=== PATIENT | male | born 1945 | race Caucasian/White ===

== ENCOUNTER 2023-01-26 10:02 | Outpatient (CLI) | payer MEDICARE, SELFPAY ==
--- NOTE | ~2023-01-26 | MR_ITS ---
EXAMINATION: MR brain/brain stem wo con DATE: 01/26/2023 11:13 INDICATION: Transient cerebral ischemia. TECHNIQUE: Magnetic resonance imaging (MRI) of the brain and brainstem was performed without intraven ous contrast. Sequences included sagittal and axial T1-weighted SE, axial diffusion-weighted FS SE, a xial T2*-weighted GRE, axial 3D SWAN, axial T2-weighted FLAIR, and axial T2-weighted FSE. Apparent di ffusion coefficient (ADC) maps were created. COMPARISON: None. FINDINGS: There are no areas of restricted diffusion to suggest acute infarction. No intracranial hemorrhage or abnormal intracranial mass lesion. There are scattered areas of nonspecific increased T2-weighted si gnal intensity in the cerebral white matter, predominantly involving the deep and periventricular whi te matter. Foci of susceptibility artifact at the bilateral lentiform nuclei on SWAN imaging which co uld represent blood products related to chronic microhemorrhage or more likely age-related dystrophic calcifications. There are no intraparenchymal signal abnormalities seen on the other pulse sequences . The ventricles are symmetric and normal in size. Right vertebral artery is dominant. There are no a bnormal extra-axial fluid collections. Flow voids are seen in the cerebral arteries on the T2-weighte d sequences consistent with their expected patency. Mild mucosal thickening in the right maxillary an d bilateral ethmoid sinuses. Visualized orbits and soft tissues are unremarkable. IMPRESSION: 1. No acute intracranial process. 2. Mild scattered nonspecific periventricular predominant white matter T2 hyperintensity which is wit hin normal limits for age and likely sequela of chronic small vessel ischemic disease. 3. Foci of susceptibility artifact at the bilateral lentiform nuclei most likely related to age-relat ed dystrophic calcification although differential would include chronic blood products related to chr onic microhemorrhage such as in the setting of hypertension. Reviewed, dictated and finalized at location A. IMPRESSION: 1. No acute intracranial process. 2. Mild scattered nonspecific periventricular predominant white matter T2 hyper intensity which is within normal limits for age and likely sequela of chronic s mall vessel ischemic disease. 3. Foci of susceptibility artifact at the bilateral lentiform nuclei most likel y related to age-related dystrophic calcification although differential would i nclude chronic blood products related to chronic microhemorrhage such as in the setting of hypertension.
--- NOTE | ~2023-01-26 | US_ITS ---
EXAMINATION: US carotid duplex BI DATE: 01/26/2023 10:53 INDICATION: Transient cerebral ischemia TECHNIQUE: Grayscale, color Doppler, and pulsed Doppler images of the cervical carotid arteries were obtained. The degree of vessel stenosis is placed in one of the following categories: normal, <50%, 5 0-69%, >=70% but less than near-occlusion, near-occlusion, or total occlusion. Note that percent sten osis relative to normal distal artery lumen diameter is indirectly measured from velocity measurement s as described by Mendez, et al. Radiology 2003; 229:340-346. COMPARISON: None. FINDINGS: RIGHT: The right common carotid artery (CCA) peak systolic velocity (PSV) is 76 cm/s. The right internal car otid artery (ICA) PSV is 72 cm/s. The right ICA end-diastolic velocity (EDV) is 19 cm/s. The right IC A/CCA PSV ratio is 0.9. Grayscale and color Doppler images yield an estimate of <50% diameter reducti on from plaque in the ICA. The external carotid artery (ECA) PSV is 82 cm/s. There is antegrade flow in the right vertebral artery. LEFT: The left CCA PSV is 77 cm/s. The left ICA PSV is 52 cm/s. The left ICA EDV is 13 cm/s. The left ICA/C CA PSV ratio is 0.7. Grayscale and color Doppler images yield an estimate of <50% diameter reduction from plaque in the ICA. The ECA PSV is 68 cm/s. There is antegrade flow in the left vertebral artery. IMPRESSION: 1. <50% stenosis from minimal plaque in the right internal carotid artery. 2. <50% stenosis from minimal plaque in the left internal carotid artery. 3. Cardiac arrhythmias present. Correlate with EKG. Reviewed, dictated and finalized at location A.
== END 2023-01-26 10:03 | disposition home or self-care (01) ==
PROVIDERS: PCP Internal Medicine; Visit Provider Internal Medicine
DX: I67.82 Cerebral ischemia (principal); I65.23 Occlusion and stenosis of bilateral carotid arteries
CPT/HCPCS: 70551; 93880

== ENCOUNTER 2023-01-30 14:28 | Outpatient (CLI) | payer MEDICARE, SELFPAY ==
--- NOTE | 2023-01-30 | ECHO_ITS ---
Patient Info Name: Vipul Barrow Age: 77 years : 1945 Gender: Male Ht: 72 in Wt: 250 lbs BSA: 2.44 m2 HR: 72 bpm BP: 174 / 84 mmHg Heart Rhythm: Sinus Rhythm Technical Quality: Fair Exam Date: 01/30/2023 2:36 PM Exam Location: [facility] Patient Status: Outpatient Admit Date: 01/30/2023 Staff Ordering Physician: VeraLon MD Fruit Cutter: Herlinda Causey RDCS Attending Provider: Vera, Lon Montgomery MD Referring Physician: Yolette IZAGUIRRE; Exam Type: CA echo doppler color flow Study Info Indications - TIA Complete two-dimensional, color flow and Doppler transthoracic echocardiogram is performed. Summary 1. Complete two-dimensional, color flow and Doppler transthoracic echocardiogram is performed. 2. Left ventricular chamber dimension is normal. 3. Left ventricular systolic function is normal, estimated at 65-70%. 4. The left ventricular diastolic function is grade I diastolic dysfunction. 5. Right ventricular systolic function is normal. 6. There is moderate aortic valve calcification. 7. There is mild aortic valve stenosis with a peak velocity of 270 cm/s, mean gradient of 15 mmHg, and aortic valve area of 1.5 cm2. 8. There is mild aortic valve regurgitation. 9. There is mild tricuspid valve regurgitation. 10. There is mild-moderate aortic atherosclerosis. Left Ventricle Left ventricular chamber dimension is normal. Left ventricular systolic function is normal, estimated at 65-70%. There is no increased left ventricular wall thickness. The left ventricular diastolic function is grade I diastolic dysfunction. Right Ventricle Right ventricular chamber dimension is normal. Right ventricular systolic function is normal. Left Atria Left atrial chamber dimension is normal. Right Atria Right atrial chamber dimension is normal. Atrial Septum Intact interatrial septum visualized by color flow imaging. Aortic Valve The aortic valve is not well visualized. There is mild aortic valve stenosis with a peak velocity of 270 cm/s, mean gradient of 15 mmHg, and aortic valve area of 1.5 cm2. There is mild aortic valve regurgitation. There is moderate aortic valve calcification. Pulmonic Valve The pulmonic valve is not well visualized. Mitral Valve The mitral valve has normal leaflets. There is no mitral valve stenosis. There is trace mitral valve regurgitation. Tricuspid Valve There is mild tricuspid valve regurgitation. Pericardium/Pleural The pericardium appears epicardial fat pad. There is no pericardial effusion. Aorta The aortic root size at the sinus of Valsalva is normal. There is mild-moderate aortic atherosclerosis. Left Ventricular Outflow Tract Name Value Normal LVOT 2D LVOT Diameter 2.1 cm LVOT Doppler LVOT Peak Gradient 5 mmHg LVOT Mean Gradient 3 mmHg LVOT VTI 25 cm LVOT VTI/AV VTI Ratio 0.5 LVOT Stroke Volume 84 ml LVOT CO 5.0 l/min L
== END 2023-01-30 14:29 | disposition home or self-care (01) ==
PROVIDERS: PCP Internal Medicine; Visit Provider Internal Medicine
DX: G45.9 Transient cerebral ischemic attack, unspecified (principal); I35.1 Nonrheumatic aortic (valve) insufficiency; I36.1 Nonrheumatic tricuspid (valve) insufficiency
CPT/HCPCS: 93306

== ENCOUNTER 2025-04-07 13:12 | Outpatient (CLI) | payer MEDICARE, SELFPAY ==
--- NOTE | ~2025-04-07 | US_ITS ---
EXAMINATION: US carotid duplex BI DATE: 04/07/2025 14:10 INDICATION: Carotid artery stenosis TECHNIQUE: Grayscale, color Doppler, and pulsed Doppler images of the cervical carotid arteries were obtained. The degree of vessel stenosis is placed in one of the following categories: normal, <50%, 5 0-69%, >=70% but less than near-occlusion, near-occlusion, or total occlusion. Note that percent sten osis relative to normal distal artery lumen diameter is indirectly measured from velocity measurement s as described by Mendez, et al. Radiology 2003; 229:340-346. Notes: Normal: Peak systolic velocity <125 centimeters/sec and no plaque <50%. Peak systolic velocity <125 ( EDV <40; ICA/CCA PSV ratio <2.0; used these factors only a tandem lesions or low cardiac output or co ntralateral disease) 50-69 %: PSV 125-230 (EDV 40-100; ratio 2-4) >= 70% but less than near occlusion: PSV greater than 230 (EDV > 100; ratio> 4.0) Near Occlusion: PSV that is variable; markedly narrowed lumen Occlusion: Absent flow on color/spectral Doppler and no lumen on del valle scale. COMPARISON: None. FINDINGS: RIGHT: The right common carotid artery (CCA) peak systolic velocity (PSV) is 66 cm/s. The right internal car otid artery (ICA) PSV is 95 cm/s. The right ICA end-diastolic velocity (EDV) is 16 cm/s. The right IC A/CCA PSV ratio is 1.4. The external carotid artery (ECA) PSV is 92 cm/s. There is antegrade flow in the right vertebral artery. LEFT: The left CCA PSV is 81 cm/s. The left ICA PSV is 72 cm/s. The left ICA EDV is 15 cm/s. The left ICA/C CA PSV ratio is 0.9. The ECA PSV is 63 cm/s. There is antegrade flow in the left vertebral artery. IMPRESSION: 1. Less than 50% stenosis in the right internal carotid artery by sonographic criteria. 2. Less than 50% stenosis in the left internal carotid artery by sonographic criteria. Reviewed, dictated and finalized at location A. IMPRESSION: 1. Less than 50% stenosis in the right internal carotid artery by sonographic solitario lynn. 2. Less than 50% stenosis in the left internal carotid artery by sonographic krystina maldonado.
--- OUTSIDE RECORDS SUMMARY | 2025-04-07 13:28 | XMS_ITS ---
Author Organization [facility] Address [address] [place] [address] Phone Care Team Providers Care Cbx Operator Name Role Phone Lon De La Vega MD Primary Care Provider Active Problems Problem Noted Date Diagnosed Date Hypercholesterolemia 03/24/2024 Malignant neoplasm of skin 06/13/2023 Carotid artery stenosis 02/13/2023 Hearing loss 02/13/2023 Aortic valve regurgitation 01/31/2023 Overview (10/07/2024): mild Basal cell carcinoma of skin 01/16/2023 Bilateral impacted cerumen 01/16/2023 Essential hypertension 01/16/2023 Obesity 01/16/2023 Sleep apnea 01/16/2023 Smoker 01/16/2023 Transient ischemic attack 01/16/2023 Current Treatment and Therapy Plans No current plan information found. Past Treatment and Therapy Plans No past plan information found. Lifetime Dose Tracking * Chemical Lifetime Dose Automatic Entry Manual Entr y Effective Dose 1.86 mSv 1.86 mSv 0 mSv Total DLP 1,231.47 DLP 1,231.47 DLP 0 DLP CTDIvol Max 62.64 mGy 62.64 mGy 0 mGy CTDIvol Min 63.29 mGy 63.29 mGy 0 mGy
--- OUTSIDE RECORDS SUMMARY | 2025-04-07 13:28 | XMS_ITS | Data Portability ---
Author Organization [place] - [address], Main Office Address [address] [place] [address] Assessment No assessment recorded. Plan of Treatment Reminders Order Date Submit Date Provider Last Modified By Organization Details Last Modified Time Details Appointments Any 15 2024 10:30A M Lon De La Vega MD Not available Not available Not available Lab LASHAY + rf (antinucl ear antibodie s + rheumatoi d factor), quantitat pablito, serum 2023 024 [facility] (Lab), [address] [place], [address], 06/11/2024 13:13:56 CMP, serum or plasma 2023 024 [facility] (Lab), [address] [place], [address], 06/09/2024 20:49:05 PSA, serum or plasma 2023 024 [facility] (Lab), [address] [place], [address], 02/26/2024 02:34:21 unlisted lab - CBC study 2023 024 [email or web address] [facility] (Lab), [address] [place], [address], 03/04/2024 08:50:58 CMP, serum or plasma 2023 024 [facility] (Lab), [address] [place], [address], 02/25/2024 21:04:38 lipid panel, serum 2023 024 [facility] (Lab), [address] [place], [address], 02/25/2024 21:04:44 Referral dermatolo gist referral - Please call patient to schedule. 2023 024 [email or web address] [facility], [address] [place], [address], 01/08/2025 10:10:05 Procedures None recorded. Surgeries None recorded. Imaging US, duplex, carotid artery - Please call patient to schedule. [email or web address] [place] [address], [address] [facility] [address], [place], [address], 03/11/2025 17:17:46 Medication Orders hydrochlo rothiazid e 25 mg tablet 2023 024 [facility]/Pharmacy #[id number], [address], [place], [address], 06/09/2024 15:24:37 metoprolo l succinate ER 100 mg tablet,ex tended release 24 hr 2023 024 [id number], [address] , [place], [address], 02/25/2024 10:23:32 Patient TargetsNo targets recorded. Patient InstructionsNo instructions recorded. 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 Referring Physician: Lon De La Vega, Internal Medicine, Encounter Date: 10/06/2024 Results Created Date Observation Date Name Description Value Unit Range Abnormal Flag Note LastModifiedBy Organization Detail LastModifiedTime 02/25/20 24 02/25/2024 CBC W/O DIFFE RENMAI AL white blood cells 9.0 x10'3 /uL 4.2-10 .8 Not Available [facility] (Lab) [address] [place], [address], 02/25/2024 20:42:31 02/25/20 24 02/25/2024 CBC W/O DIFFE RENTI AL red blood cells 4.73 x10'6 /uL 4.10-5 .80 Not Available [facility] (Lab) [address] [place], [address], 02/25/2024 20:42:31 02/25/20 24 02/25/2024 CBC W/O DIFFE RENTI AL hemoglobin 14.6 g/dL 13.2-1 7.0 Not Available [facility] (Lab) [address] [place], [address], 02/25/2024 20:42:31 02/25/20 24 02/25/2024 CBC W/O DIFFE RENTI AL hematocrit 44.6 % 39.3-5 0.0 Not Available [facility] (Lab) [address] [place], [address], 02/25/2024 20:42:31 02/25/20 24 02/25/2024 CBC W/O DIFFE RENTI AL mean red cell volume 94.3 fL 80.0-9 7.0 Not Available [facility] (Lab) [address] [place], [address], 02/25/2024 20:42:31 02/25/20 24 02/25/2024 CBC W/O DIFFE RENTI AL mean red cell hemoglobin 30.9 pg 27.0-3 3.0 Not Available [facility] (Lab) [address] [place], [address], 02/25/2024 20:42:31 02/25/20 24 02/25/2024 CBC W/O DIFFE RENTI AL mean RBC HGB concentratio n 32.7 g/dL 31.0-3 6.0 Not Available [facility] (Lab) [address] [place], [address], 02/25/2024 20:42:31 02/25/20 24 02/25/2024 CBC W/O DIFFE RENTI AL red cell distribution width 13.5 % 11.8-1 5.5 Not Available [facility] (Lab) [address] [place], [address], 02/25/2024 20:42:31 02/25/20 24 02/25/2024 CBC W/O DIFFE RENTI AL platelets 248 x10'3 /uL 150-40 0 Not Available [facility] (Lab) [address] [place], [address], 02/25/2024 20:42:31 02/25/20 24 02/25/2024 CBC W/O DIFFE RENTI AL mean platelet volume 9.8 fL 9.0-12 .4 Not Available [facility] (Lab) [address] [place], [address], 02/25/2024 20:42:31 02/25/20 24 02/25/2024 COMPR EHENS PABLITO METAB OLIC PANEL sodium 139 mmol/ L 137-14 5 Not Available [facility] (Lab) [address] [place], [address], 02/25/2024 21:04:38 02/25/20 24 02/25/2024 COMPR EHENS PABLITO METAB OLIC PANEL potassium 4.3 mmol/ L 3.5-5. 1 Not Available [facility] (Lab) [address] [place], [address], 02/25/2024 21:04:38 02/25/20 24 02/25/2024 COMPR EHENS PABLITO METAB OLIC PANEL chloride 106 mmol/ L 98-107 Not Available [facility] (Lab) [address] [place], [address], 02/25/2024 21:04:38 02/25/20 24 02/25/2024 COMPR EHENS PABLITO METAB OLIC PANEL carbon dioxide 27 mmol/ L 22-30 Not Available [facility] (Lab) [address] [place], [address], 02/25/2024 21:04:38 02/25/20 24 02/25/2024 COMPR EHENS PABLITO METAB OLIC PANEL anion gap 10.3 mmol/ L 14-22 low Not Available [facility] (Lab) [address] [place], [address], 02/25/2024 21:04:38 02/25/20 24 02/25/2024 COMPR EHENS PABLITO METAB OLIC PANEL glucose 105 mg/dL 70-99 high Not Available [facility] (Lab) [address] [place], [address], 02/25/2024 21:04:38 02/25/20 24 02/25/2024 COMPR EHENS PABLITO METAB OLIC PANEL BUN 19 mg/dL 8-19 Not Available [facility] (Lab) [address] [place], [address], 02/25/2024 21:04:38 02/25/20 24 02/25/2024 COMPR EHENS PABLITO METAB OLIC PANEL creatinine 0.88 mg/dL 0.66-1 .25 Not Available [facility] (Lab) [address] [place], [address], 02/25/2024 21:04:38 02/25/20 24 02/25/2024 COMPR EHENS PABLITO METAB OLIC PANEL GFR >60 Refer ence Range : Antonito ge GFR Healt hy Adult : >60 mL/mi n/1.7 3 m2 Chron ic Kidne y Disea se: 15-60 mL/mi n/1.7 3 m2 Kidne y Failu re: <15/m L/min /1.73 m2 www.n iddk. nih.g ov The MDRD study equat ion has not been valid ated in child risa <18 years of age; pregn ant women ; the elder ly >85 years of age; or in some racia l or ethni c subgr oups, such as Hispa nics. Outsi de the valid ated baltazar eters , estim ated GFR is less accur ate, requi ring clini srini judgm ent on a case- by-ca se basis . Clini srini inter preta tion for other races and ages must be made by the clini janis. The MDRD study equat ion has not been valid ated for the evalu ation of serum creat inine relat ed to nutri luan l statu s or medic ation usage . For perso ns <18 years of age, a pedia tric GFR calcu lator is avail able on the [facility] websi te: https ://marielle mock.sabrina iglesias.nasir hurst/pr ofess ional s/kdo qi/gf r_cal culat or Not Available [facility] (Lab) [address] [place], [address], 02/25/2024 21:04:38 02/25/20 24 02/25/2024 COMPR EHENS PABLITO METAB OLIC PANEL alkaline phosphatase 64 U/L 38-126 Not Available [facility] (Lab) [address] [place], [address], 02/25/2024 21:04:38 02/25/20 24 02/25/2024 COMPR EHENS PABLITO METAB OLIC PANEL alanine aminotransfe rase 25 U/L 0-50 Not Available [facility] (Lab) [address] [place], [address], 02/25/2024 21:04:38 02/25/20 24 02/25/2024 COMPR EHENS PABLITO METAB OLIC PANEL aspartate aminotransfe rase 30 U/L 15-46 Not Available [facility] (Lab) [address] [place], [address], 02/25/2024 21:04:38 02/25/20 24 02/25/2024 COMPR EHENS PABLITO METAB OLIC PANEL bilirubin, total 0.70 mg/dL 0.20-1 .30 Not Available [facility] (Lab) [address] [place], [address], 02/25/2024 21:04:38 02/25/20 24 02/25/2024 COMPR EHENS PABLITO METAB OLIC PANEL calcium 9.3 mg/dL 8.4-10 .2 Not Available [facility] (Lab) [address] [place], [address], 02/25/2024 21:04:38 02/25/20 24 02/25/2024 COMPR EHENS PABLITO METAB OLIC PANEL total protein 6.9 g/dL 6.3-8. 2 Not Available [facility] (Lab) [address] [place], [address], 02/25/2024 21:04:38 02/25/20 24 02/25/2024 COMPR EHENS PABLITO METAB OLIC PANEL albumin 4.2 g/dL 3.0-4. 4 Not Available [facility] (Lab) [address] [place], [address], 02/25/2024 21:04:38 02/25/20 24 02/25/2024 COMPR EHENS PABLITO METAB OLIC PANEL globulin 2.7 g/dL 2.6-4. 2 Not Available [facility] (Lab) [address] [place], [address], 02/25/2024 21:04:38 02/25/20 24 02/25/2024 COMPR EHENS PABLITO METAB OLIC PANEL A/G ratio 1.6 ratio 1.0-2. 0 Not Available [facility] (Lab) [address] [place], [address], 02/25/2024 21:04:38 02/25/20 24 02/25/2024 LIPID PANEL cholesterol 122 mg/dL 140-19 9 low NIH NEEL NSUS RECOM MENDA TION FOR JOHN STERO L: ADULT CHILD LOW RISK: <200 <170 BORDE RLINE : <200- 239 ----- HIGH RISK: >240 >200 Not Available [facility] (Lab) [address] [place], [address], 02/25/2024 21:04:43 02/25/20 24 02/25/2024 LIPID PANEL triglyceride s 157 mg/dL 0-150 high NIH NEEL NSUS REPOR T RECOM MENDA TION FOR TRIGL YCERI MERLE: ADULT CHILD LOW RISK: <150 ----- BODER LINE: 150-1 99 ----- HIGH RISK: >200 ----- Not Available [facility] (Lab) [address] [place], [address], 02/25/2024 21:04:43 02/25/20 24 02/25/2024 LIPID PANEL HDL cholesterol 47 mg/dL 40- Not Available [facility] (Lab) [address] [place], [address], 02/25/2024 21:04:43 02/25/20 24 02/25/2024 LIPID PANEL LDL cholesterol, calculated 44 mg/dL 0-130 NIH NEEL NSUS REPOR T RECOM MENDA TIONS FOR LDL: ADULT CHILD LOW RISK <130 <110 (OPTI MAL LDL) <100 ----- BORDE RLINE : 130-1 59 ----- HIGH RISK: >160 >130 A TRIGL YCERI DE RESUL T >400 INVAL IDATE S THE CALCU LATIO N FOR LDL FRACT IONAT ION - THE LDL RESUL T WILL NOT BE REPOR MALENA. Not Available [facility] (Lab) [address] [place], [address], 02/25/2024 21:04:43 02/25/20 24 02/25/2024 PSA SCREE N PSA medicare screen 2.44 NG/mL 0.00-4 .00 Not Available [facility] (Lab) [address] [place], [address], 02/25/2024 21:30:44 06/09/20 24 06/09/2024 RHEUM ATOID FACTO R rf <8.6 IU/mL 0.0-11 .9 Not Available [facility] (Lab) [address] [place], [address], 06/09/2024 20:48:45 06/09/20 24 06/09/2024 COMPR EHENS PABLITO METAB OLIC PANEL sodium 138 mmol/ L 137-14 5 Not Available [facility] (Lab) [address] [place], [address], 06/09/2024 20:49:05 06/09/20 24 06/09/2024 COMPR EHENS PABLITO METAB OLIC PANEL potassium 4.6 mmol/ L 3.5-5. 1 Not Available [facility] (Lab) [address] [place], [address], 06/09/2024 20:49:05 06/09/20 24 06/09/2024 COMPR EHENS PABLITO METAB OLIC PANEL chloride 108 mmol/ L 98-107 high Not Available [facility] (Lab) [address] [place], [address], 06/09/2024 20:49:05 06/09/20 24 06/09/2024 COMPR EHENS PABLITO METAB OLIC PANEL carbon dioxide 26 mmol/ L 22-30 Not Available [facility] (Lab) [address] [place], [address], 06/09/2024 20:49:05 06/09/20 24 06/09/2024 COMPR EHENS PABLITO METAB OLIC PANEL anion gap 8.6 mmol/ L 14-22 low Not Available [facility] (Lab) [address] [place], [address], 06/09/2024 20:49:05 06/09/20 24 06/09/2024 COMPR EHENS PABLITO METAB OLIC PANEL glucose 75 mg/dL 70-99 Not Available [facility] (Lab) [address] [place], [address], 06/09/2024 20:49:05 06/09/20 24 06/09/2024 COMPR EHENS PABLITO METAB OLIC PANEL BUN 20 mg/dL 8-19 high Not Available [facility] (Lab) [address] [place], [address], 06/09/2024 20:49:05 06/09/20 24 06/09/2024 COMPR EHENS PABLITO METAB OLIC PANEL creatinine 0.80 mg/dL 0.66-1 .25 Not Available [facility] (Lab) [address] [place], [address], 06/09/2024 20:49:05 06/09/20 24 06/09/2024 COMPR EHENS PABLITO METAB OLIC PANEL GFR >60 Refer ence Range : Antonito ge GFR Healt hy Adult : >60 mL/mi n/1.7 3 m2 Chron ic Kidne y Disea se: 15-60 mL/mi n/1.7 3 m2 Kidne y Failu re: <15/m L/min /1.73 m2 www.n iddk. nih.g ov The MDRD study equat ion has not been valid ated in child risa <18 years of age; pregn ant women ; the elder ly >85 years of age; or in some racia l or ethni c subgr oups, such as Hisma nics. Outsi de the valid ated baltazar eters , estim ated GFR is less accur ate, requi ring clini srini judgm ent on a case- by-ca se basis . Clini srini inter preta tion for other races and ages must be made by the clini janis. The MDRD study equat ion has not been valid ated for the evalu ation of serum creat inine relat ed to nutri luan l statu s or medic ation usage . For perso ns <18 years of age, a pedia tric GFR calcu lator is avail able on the [facility] websi te: https ://marielle mock.sabrina iglesias.o rg/pr ofess ional s/kdo qi/gf r_cal culat or Not Available [facility] (Lab) [address] [place], [address], 06/09/2024 20:49:05 06/09/20 24 06/09/2024 COMPR EHENS PABLITO METAB OLIC PANEL alkaline phosphatase 68 U/L 38-126 Not Available [facility] (Lab) [address] [place], [address], 06/09/2024 20:49:05 06/09/20 24 06/09/2024 COMPR EHENS PABLITO METAB OLIC PANEL alanine aminotransfe rase 22 U/L 0-50 Not Available [facility] (Lab) [address] [place], [address], 06/09/2024 20:49:05 06/09/20 24 06/09/2024 COMPR EHENS PABLITO METAB OLIC PANEL aspartate aminotransfe rase 22 U/L 15-46 Not Available [facility] (Lab) [address] [place], [address], 06/09/2024 20:49:05 06/09/20 24 06/09/2024 COMPR EHENS PABLITO METAB OLIC PANEL bilirubin, total 0.40 mg/dL 0.20-1 .30 Not Available [facility] (Lab) [address] [place], [address], 06/09/2024 20:49:05 06/09/20 24 06/09/2024 COMPR EHENS PABLITO METAB OLIC PANEL calcium 9.1 mg/dL 8.4-10 .2 Not Available [facility] (Lab) [address] [place], [address], 06/09/2024 20:49:05 06/09/20 24 06/09/2024 COMPR EHENS PABLITO METAB OLIC PANEL total protein 6.6 g/dL 6.3-8. 2 Not Available [facility] (Lab) [address] [place], [address], 06/09/2024 20:49:05 06/09/20 24 06/09/2024 COMPR EHENS PABLITO METAB OLIC PANEL albumin 3.9 g/dL 3.0-4. 4 Not Available [facility] (Lab) [address] [place], [address], 06/09/2024 20:49:05 06/09/20 24 06/09/2024 COMPR EHENS PABLITO METAB OLIC PANEL globulin 2.7 g/dL 2.6-4. 2 Not Available [facility] (Lab) [address] [place], [address], 06/09/2024 20:49:05 06/09/20 24 06/09/2024 COMPR EHENS PABLITO METAB OLIC PANEL A/G ratio 1.4 ratio 1.0-2. 0 Not Available [facility] (Lab) [address] [place], [address], 06/09/2024 20:49:05 06/09/20 24 06/11/2024 LASHAY SCREE N RFX TITER /CIRA SHORTY antinuclear antibodies, ifa POSITI VE abnormal Negat pablito <1:80 Borde rline 1:80 Posit pablito >1:80 Perfo rmed at: - [facility] [place] [address] Lab Direc tor: Jones raza PhD, Phone : [phone] Not Available [facility] (Lab) [address] [place], [address], 06/11/2024 13:11:08 06/09/20 24 06/11/2024 LASHAY SCREE N RFX TITER /CIRA SHORTY homogeneous pattern 1:160 high ICAP nomen clatu re: AC-1 Not Available [facility] (Lab) [address] [place], [address], 06/11/2024 13:11:08 06/09/20 24 06/11/2024 LASHAY SCREE N RFX TITER /CIRA SHORTY anasp4 COMMEN T abnormal . Carlitos nuñez Disea se Assoc iatio n ----- ----- --- ----- ----- ----- ----- ----- ----- ----- ----- ----- Homog eneou s Syste christi Lupus Eryth emato j carlos, Drug Induc ed Syste christi Lupus Eryth emato j carlos, Chron ic Autoi mmune hepat itis, Khoi ile Idiop athic Arthr itis ----- ----- --- ----- ----- ----- ----- ----- ----- ----- ----- ----- Speck led Sjogr en Syndr ome, Syste christi Lupus Eryth emato j carlos, Subac oanh Cutan eous Lupus , Neona yuly Lupus , Conge nital Heart Block , Mixed Conne ctive Tissu e Disea se, Scler oderm a-dif fuse, Scler oderm a-Aut oimmu ne Myosi tis Overl ap Syndr ome, Syste christi Lupus Eryth emato j carlos-S clero derma -Auto immun e Myosi tis Overl ap Syndr ome, Syste christi Autoi mmune Rheum atic Disea se, Esequiel Cavanaugh ctive Tissu e Disea se ----- ----- --- ----- ----- ----- ----- ----- ----- ----- ----- ----- Nucle olar Syste christi Scler osis, Scler oderm a-Aut oimmu ne Myosi tis Overl ap Syndr ome, Sjogr en Syndr ome, Gretchen ud pheno sharyn , Pulmo nary Arter ial Hyper tensi on, Syste christi Autoi mmune Rheum atic Disea se, Clementina r ----- ----- --- ----- ----- ----- ----- ----- ----- ----- ----- ----- Centr omere Scler oderm a-CRE ST, Limit ed Cutan eous SSc, Gretchen ud's Pheno sharyn , Prima ry Bilia ry Chola ngiti s ----- ----- --- ----- ----- ----- ----- ----- ----- ----- ----- ----- Nucle ar Dot Prima ry Bilia ry Chola ngiti s ----- ----- --- ----- ----- ----- ----- ----- ----- ----- ----- ----- Nucle ar Prima ry Bilia ry Chola ngiti s, Autoi mmune Membr ane Hepat itis/ Liver disea se, Syste christi Autoi mmune Rheum atic Disea se, Autoi mmune Cytop enias , Linea r Scler oderm a, Antip hosph olipi d Syndr ome ----- ----- --- ----- ----- ----- ----- ----- ----- ----- ----- ----- Perfo rmed at: [facility] - [facility] [address] [place] [address] Lab Direc tor: Jones raza PhD, Phone : [phone] Not Available [facility] (Lab) [address] [place], [address], 06/11/2024 13:11:08 Result Notes None recorded. Problems Name Problem SNOMED Code Status Onset Date Resolution Date Notes Provider Name and Address Organization Details Recorded Time Transient cerebral ischemia 709895928 Active 2022 Not Available [facility] 3 16:44:49 Essential hypertensi on 83431931 Active 2022 Not Available [facility] 3 16:44:49 Sleep apnea 82171107 Active 2022 Not Available [facility] 3 16:44:49 Impacted cerumen of bilateral ears 2077905105847 108 Active 2022 Not Available [facility] 3 16:44:49 Basal cell carcinoma of skin 317521696 Active 2022 Not Available [facility] 3 16:44:49 Obesity 055118182 Active 2022 Not Available [facility] 3 16:44:49 Smoker 98678326 Active 2022 Not Available [facility] 3 16:44:49 Hyperlipid emia 43585607 Active 2022 Not Available [facility] 3 16:44:49 Aortic valve stenosis 77173988 Active 2022 mild Not Available [facility] 3 16:44:49 Aortic valve regurgitat ion 41713719 Active 2022 mild Not Available [facility] 3 16:44:49 Tricuspid valve regurgitat ion 028718056 Active 2022 mild Not Available [facility] 3 16:44:49 Carotid artery stenosis 96122770 Active 2022 Not Available [facility] 3 16:44:49 Hearing loss 90130444 Active 2022 Not Available [facility] 3 16:44:49 Impacted cerumen in left ear 6904265868893 101 Active 2022 Not Available [facility] 3 16:44:49 Malignant neoplasm of skin 760302318 Active 2022 Not Available [facility] 3 16:44:49 Hyperchole sterolemia 37267032 Active 2023 Manda Waters MA null, [place] [facility] 4 12:13:10 Swelling of hand 765202238 Active 2023 Lon De La Vega MD [address], [facility] [address], [place], [address] , [facility] [employer] [facility] [employer] [facility] 4 15:22:46 Pain of multiple joints 34771709 Active 2023 Lon De La Vega MD [address], [place] [address], [place], [address] , [facility] [employer] [facility] [employer] [facility] 4 15:23:36 Seizure disorder 707813637 Active 2023 oLn De La Vega MD [address], [address], [place], [address] , [facility] [employer] [facility] [address] [facility] 4 11:06:45 Epidermoid cyst of skin of neck 251560891 Active 2023 Lon De La Vega MD [address], [place] [address], [place], [address] , [facility] [employer]) [facility] [address] 11:52:12 Problem Notes None recorded. Procedures Surgical History Date Name Laterality Status Provider Name and Address Organization Details Recorded Time 10/11/20 23 Medicare Wellness CPT Code, subsequent completed Lluvia Escobar LPN [facility] [address] [facility] 10/11/2023 10:25:07 Tonsillectomy completed Dilia Padron [facility] [employer] [facility] 01/16/2023 10:39:12 excision of basal cell carcinoma completed Dilia Padron Marylin [facility] [employer] [facility] 01/16/2023 10:39:40 Imaging Results None recorded. Procedure Notes None recorded. Medical Equipment None Reported. Allergies Allergen ID Allergen Name Allergen Category Reaction Reaction Severity Criticality Documentation Date Start Date Code Code System Note Provider Name and Address Organization Details Recorded Time 05313 atorvasta tin medicatio n muscle cramps Not available Not available 03/24/2024 44341 RxNorm ANKIT Sutherland, [facility] [employer] [facility] 4 10:59:25 49849 levetirac etam medicatio n Not available Not available Not available 02/04/2025 23145 7 RxNorm joint pains , hand swell ing Lon De La Vega MD [address], [address], [place], [address], [place] [facility] 12:11:02 Medications Name Sig Start Date Stop Date Status Note LastModified by Organization Details LastModified Time lamotrigine 150 mg tablet TAKE 1 TABLET BY MOUTH EVERY DAY active Not Available Not Available No t Available atorvastati n 20 mg tablet TAKE 1 TABLET BY MOUTH EVERY DAY 2023 active STEVIE 4 SEP 12 ok to rf Not Available Not Available Not Available metoprolol succinate ER 50 mg tablet,exte nded release 24 hr TAKE 1 TABLET BY MOUTH EVERY DAY 02/24 completed Not Available Not Available Not Available levetiracet am 500 mg tablet TAKE 1 TABLET BY MOUTH TWICE A DAY 02/04 completed Not Available Not Available Not Available metoprolol succinate ER 100 mg tablet,exte nded release 24 hr TAKE 1 TABLET BY MOUTH EVERY DAY 2024 active STEVIE 42/2 5 Sep 5 ok to rf Not Available Not Available Not Available clopidogrel 75 mg tablet TAKE 1 TABLET BY MOUTH EVERY DAY active Not Available Not Available No t Available lamotrigine 25 mg tablet TAKE 1 TABLET BY MOUTH ONCE DAILY X2 WEEKS, 2 TABS ONCE DAILY X2 WEEKS THEN 4 TABS ONCE DAILY 06/09 completed Not Available Not Available Not Available cephalexin 500 mg capsule TAKE 1 CAPSULE BY MOUTH TWICE A DAY FOR 7 DAYS DIRECTED active Not Available Not Available No t Available hydrochloro thiazide 25 mg tablet TAKE 1 TABLET BY MOUTH EVERY DAY active Not Available Not Available No t Available lamotrigine 100 mg tablet TAKE 1 TABLET BY MOUTH EVERY DAY 02/04 completed Not Available Not Available Not Available ezetimibe 10 mg tablet TAKE 1 TABLET BY MOUTH EVERY DAY 2024 active STEVIE 2/2 5 Sep 5 ok to rf Not Available Not Available Not Available Vitals Date Recorded Body height Body mass index (BMI) Body weight Body temperature Heart rate Oxygen saturation Oxygen saturation in Arterial blood by Pulse oximetry Systolic blood pressure Diastolic blood pressure Provider Name and Address Organization Details Last Updated DateTime 182.88 cm 33.9 kg/m2 538169. 09 g 96.7 [degF] 59 /min 96 % 96 % 146 mm[Hg] 70 mm[Hg] MARILYN Crespo [employer] [facility] 5 11:32:30 Date Recorded Body height Body mass index (BMI) Body weight Body temperature Heart rate Oxygen saturation Oxygen saturation in Arterial blood by Pulse oximetry Systolic blood pressure Diastolic blood pressure Provider Name and Address Organization Details Last Updated DateTime 4 182.88 cm 34.2 kg/m2 026756. 28 g 96.8 [degF] 73 /min 96 % 96 % 140 mm[Hg] 68 mm[Hg] MARILYN Crespo [employer] [facility] 4 10:03:41 Date Recorded Body height Body mass index (BMI) Body weight Body temperature Heart rate Oxygen saturation Oxygen saturation in Arterial blood by Pulse oximetry Systolic blood pressure Diastolic blood pressure Provider Name and Address Organization Details Last Updated DateTime 4 182.88 cm 33.9 kg/m2 021855. 09 g 97.5 [degF] 63 /min 96 % 96 % 168 mm[Hg] 70 mm[Hg] Dilia redmond Marylin [employer] [facility] 4 14:56:06 Date Recorded Body height Body mass index (BMI) Body weight Body temperature Heart rate Oxygen saturation Oxygen saturation in Arterial blood by Pulse oximetry Systolic blood pressure Diastolic blood pressure Provider Name and Address Organization Details Last Updated DateTime 4 182.88 cm 32.8 kg/m2 521920. 35 g 96.8 [degF] 77 /min 96 % 96 % 140 mm[Hg] 66 mm[Hg] MARILYN Crespo [employer] [address] [facility] 4 10:39:31 Date Recorded Body height Body mass index (BMI) Body weight Body temperature Heart rate Oxygen saturation Oxygen saturation in Arterial blood by Pulse oximetry Systolic blood pressure Diastolic blood pressure Provider Name and Address Organization Details Last Updated DateTime 4 182.88 cm 33.2 kg/m2 697263. 13 g 97.6 [degF] 67 /min 97 % 97 % 140 mm[Hg] 70 mm[Hg] Dilia Carlsonakhil MARILYN [employer]mond [employer] [facility] [address] [facility] 11:36:19 Social History Question Answer Notes LastModified by Organization Details LastModified Time Tobacco Smoking Status Former Smoker quit at 37 MARILYN [place] [facility] [place] [employer] 01/16/2023 10:36:49 Do You Have An Advance Directive? Yes Information not available 01/16/2023 Are You Blind Or Do You Have Difficulty Seeing? No Information not available 01/16/2023 What Is Your Level Of Caffeine Consumption? Moderate Information not available 01/16/2023 Are You Deaf Or Do You Have Serious Difficulty Hearing? Yes Left Ear Is Bad Information not available 01/16/2023 What Type Of Diet Are You Following? REGULAR Information not available 01/16/2023 What Is The Highest Grade Or Level Of School You Have Completed Or The Highest Degree You Have Received? [id number] Information not available 01/16/2023 Have There Been Any Changes To Your Family Or Social Situation? No Information not available 01/16/2023 When Did You Quit Smoking? 16+yearssincelastci garette Information not available 01/16/2023 Do You Use Insect Repellent Routinely? No Information not available 01/16/2023 Where Do You Live? SingleLevelHouse Information not available 01/16/2023 What Was The Date Of Your Most Recent Tobacco Screening? 01/16/2023 Information not available 01/16/2023 Have You Ever Been Counseled For Unhealthy Alcohol Use? No Information not available 01/16/2023 Do You Have Any Pets? No Information not available 01/16/2023 What Is Your Relationship Status? Information not available 01/16/2023 Do You Use Your Seat Belt Or Car Seat Routinely? Yes Information not available 01/16/2023 Do You Have Smoke And Carbon Monoxide Detectors In Your Home? Yes Information not available 01/16/2023 At What Age Did You Start Smoking Tobacco? 11 Information not available 01/16/2023 Are You Passively Exposed To Smoke? Yes Information not available 01/16/2023 Are There Any Smokers In Your House? Yes Information not available 01/16/2023 Do You Use Sunscreen Routinely? No Information not available 01/16/2023 Have You Recently Traveled Abroad? Yes [place] Information not available 01/16/2023 Do You Have Difficulty Walking Or Climbing Stairs? No Information not available 01/16/2023 Do You Have Any Dietary Restrictions? No Information not available 01/16/2023 Sex: Male Functional Status Question Answer Note LastModified by Organizat ion Details LastModified Time Do you use any illicit or recreational drugs? No Information not available 01/16/2023 Do you or have you ever used any other forms of tobacco or nicotine? Yes Information not available 01/16/2023 What is your level of alcohol consumption? Moderate Information not available 01/16/2023 Do you or have you ever used smokeless tobacco? smokes a pipe and a occ. cigar Information not available 01/16/2023 Are you currently employed? No Information not available 01/16/2023 Do you have transportation difficulties? No Information not available 01/16/2023 Are you able to walk? YESWOREST Information not available 01/16/2023 Do you have difficulty doing errands alone? No Information not available 01/16/2023 Are you able to care for yourself? Yes Information n ot available 01/16/2023 Do you have difficulty dressing or bathing? No Information not available 01/16/2023 Do you or have you ever used e-cigarettes or vape? Never used electronic cigarettes Information not available 01/16/2023 What is your exercise level? None Information not available 01/16/2023 Mental Status Question Answer Note LastModified by Organizat ion Details LastModified Time Do you feel stressed (tense, restless, nervous, or anxious, or unable to sleep at night)? [id number] Information not available 01/16/2023 Do you have difficulty concentrating, remembering or making decisions? No Information no t available 01/16/2023 Family History Relationship Description Onset Age of this Age Resolved Age Notes LastModified by Organization Details LastModified Time Father Heart disease Not available 10:31:39 Father Family history of malignant neoplasm Not available 10:32:10 Brother Heart disease Not available 10:31:39 Maternal Grandfather Essential hypertension Not available 01/16/2023 10:31:48 Maternal Grandfather Diabetes mellitus Not available 10:32:52 Mother Family history of malignant neoplasm Not available 10:32:10 Mother Depressive disorder Not available 10:33:06 Paternal Grandfather Family history of malignant neoplasm Not available 10:32:10 Medical History No medical history recorded. Past Encounters Encounter ID Performer Location Encounter Start Date Encounter Closed Date Diagnosis/Indication Diagnosis SNOMED-CT Code Diagnosis ICD10 Code Diagnosis Note [id number] Lon De La Vega MD [facility] Internal [address] [address] 01/16/2023 10:17:56 01/16/2023 11:36:25 Transient cerebral ischemia 812313949 G45.9 start asa a day Essential hypertension 04423681 I10 START MEDS Sleep apnea 90812517 G47 .30 does not want cpap Impacted c erumen of bilateral ears 7273901947 327405 H61.23 needs cleaning Basal cell carcinoma of skin 272866582 C44.91 to see derm Obesity 766095394 E66.9 advised to lose Screening for malignant neoplasm of prostate 703217073 Z12.5 Smoker 39849919 F17.200 advised to quit [id number] Lon De La Vega MD [facility] [place] [address] [place] [address] 02/13/2023 09:56:10 02/13/2023 11:02:08 Transient cerebral ischemia 333368907 G45.9 asa Essential hypertension 97424962 I10 getting better Sleep apnea 05620438 G47 .30 does not want cpap, will consider oral device Basal cell carcinoma of skin 099606142 C44.91 to see derm Obesity 554998767 E66.9 advised to lose Smoker 77225546 F17.200 advised to quit Adult [facility] examination 927043980 Z00.00 PSA- 2 Aortic valve stenosis 60 023166 I35.0 mild Carotid ar des stenosis 06724765 I65.29 mild Hearing loss 20234981 H9 1.92 Impacted c erumen in left ear 9565900684 802084 H61.22 cleaned and irrigated with water and syringe, TM and ear canals clear [id number] Lon De La Vega MD [facility] [address] [place] [address] 06/13/2023 09:53:34 06/13/2023 10:40:13 Transient cerebral ischemia 483919057 G45.9 asa and plavix Essential hypertension 92771979 I10 under control Sleep apnea 98446715 G47 .30 does not want cpap, or sleep lab Basal cell carcinoma of skin 049716493 C44.91 to see derm Obesity 220061839 E66.9 advised to lose Smoker 47942394 F17.200 advised to quit Adult [facility] examination 305205945 Z00.00 Colonoscop y- NEVERPSA-0 01/2023FLU- 2Pneumo vax- Thinks he has had bothCOVID- Has had 3 vaccines Aortic valve stenosis 60 319578 I35.0 mild Carotid ar des stenosis 26257161 I65.29 mild Hearing loss 60580971 H9 1.92 Malignant neoplasm of skin 973609504 C44.90 seeing derm [id number] Lon De La Vega MD [facility] [address] [place] [address] 10/11/2023 09:59:43 10/11/2023 10:51:57 Transient cerebral ischemia 153620372 G45.9 asa and plavix Essential hypertension 38183141 I10 adjust dose Sleep apnea 52071674 G47 .30 does not want cpap, or sleep lab Basal cell carcinoma of skin 782192207 C44.91 to see derm Obesity 340781595 E66.9 advised to lose Smoker 44242535 F17.200 advised to quit Adult heal th examination 461488158 Z00.00 Colonoscop y- NEVERPSA-0 - 2022- CVSRSV-Pne umovax- Thinks he has had bothCOVID- Has had 3 vaccines Aortic valve stenosis 60 318139 I35.0 mild Carotid ar des stenosis 82930402 I65.29 mild Hearing loss 26826081 H9 1.92 does not want hearing aids Malignant neoplasm of skin 712001418 C44.90 seeing derm Screening for disorder 693062374 Z13.9 [id number] Lon De La Vega MD [facility] Internal Med [facility] [address] [place] [address] 02/25/2024 09:56:56 02/25/2024 10:59:56 Transient cerebral ischemia 801682340 G45.9 asa and plavix Essential hypertension 77084997 I10 watch Sleep apnea 23030852 G47 .30 does not sleep study Basal cell carcinoma of skin 169027347 C44.91 to see derm Obesity 657232153 E66.9 advised to lose Smoker 84829972 F17.200 advised to quit Adult [facility] th examination 342791108 Z00.00 Colonoscop y- NEVERPSA-0 2022- CVSRSV-Pne umovax- Thinks he has had bothCOVID- Has had 3 vaccines Aortic valve stenosis 60 449475 I35.0 mild Carotid ar des stenosis 68573055 I65.29 mild Hearing loss 02702148 H9 1.92 does not want hearing aids Malignant neoplasm of skin 593540433 C44.90 seeing derm Screening for malignant neoplasm of prostate 217460981 Z12.5 [id number] Lon De La Vega MD [facility] Med [address] [place] [address] 06/09/2024 14:51:25 06/09/2024 15:42:01 Essential hypertension 68335575 I10 add Swelling of hand 2880548 03 R22.33 add HCTZ Pain of mu ltiple joints 03782121 M25.50 [id number] Lon De La Vega MD [facility] Internal Med [facility] [address] [place] [address] 06/30/2024 10:36:15 06/30/2024 11:11:49 Transient cerebral ischemia 463202799 G45.9 asa and plavix Essential hypertension 60532103 I10 better Sleep apnea 95588038 G47 .30 does not sleep study Basal cell carcinoma of skin 349440969 C44.91 to see derm Obesity 766735147 E66.9 advised to lose Smoker 21904206 F17.200 advised to quit Aortic valve stenosis 60 320293 I35.0 mild Carotid ar des stenosis 05889591 I65.29 mild Hearing loss 23037355 H9 1.92 does not want hearing aids Malignant neoplasm of skin 249567625 C44.90 seeing derm Adult heal th examination 599356680 Z00.00 Colonoscop y- NEVERPSA-0 02/25/242022- CVSRSV-Pne umovax- Thinks he has had bothCOVID- Has had 3 vaccines Seizure disorder 5883862 02 G40.909 under control with meds [id number] Lon De La Vega MD [facility] Internal Med [address] [place] [address] 10/06/2024 11:21:27 10/06/2024 11:56:55 Transient cerebral ischemia 045746439 G45.9 asa and plavix Essential hypertension 02308824 I10 WATCH Sleep apnea 96362089 G47 .30 does not sleep study Basal cell carcinoma of skin 486177869 C44.91 to see derm Obesity 767257532 E66.9 advised to lose Smoker 40253340 F17.200 advised to quit Aortic valve stenosis 60 166618 I35.0 mild Carotid ar des stenosis 50619379 I65.29 mild Hearing loss 86529239 H9 1.92 does not want hearing aids Malignant neoplasm of skin 191147125 C44.90 seeing derm Adult heal th examination 085522406 Z00.00 Colonoscop y- NEVERPSA-0 02/25/24FLU 2023- CVSRSV-Pne umovax- Thinks he has had bothCOVID- Has had 3 vaccines Seizure disorder 2899634 02 G40.909 under control with meds Epidermoid cyst of skin of neck 751843721 L72.0 to see derm [id number] Lon De La Vega MD [facility] Internal Med [address] [place] [address] 02/04/2025 11:20:49 02/04/2025 12:43:26 Transient cerebral ischemia 127164618 G45.9 asa and plavix Essential hypertension 92817003 I10 fair Sleep apnea 13057505 G47 .30 does not sleep study Basal cell carcinoma of skin 126097624 C44.91 to see derm Obesity 030745519 E66.9 advised to lose Smoker 32329616 F17.200 advised to quit Aortic valve stenosis 60 302062 I35.0 mild Carotid ar des stenosis 23116373 I65.29 mild Hearing loss 18707876 H9 1.92 does not want hearing aids Malignant neoplasm of skin 513406456 C44.90 seeing derm Adult heal th examination 573223905 Z00.00 Colonoscop y- NEVERPSA-0 02/25/242023- CVSRSV-Pne umovax- Thinks he has had bothCOVID- Has had 3 vaccines Seizure disorder 0464709 02 G40.909 under control with meds Health Concerns Section Related Observation LastModified by Organization Detai ls LastModified Time None Recorded Concern Status LastModified by Organization Details LastModified Time None Recorded Advance Directives Directive Y: Payers Encounter Date Sequence Insurance Name Policy Number Policy Liu Covered Member ID Liu Member ID Guarantor Name 02/25/2024 1 [employer] (MEDICARE REPLACEMENT/ ADVANTAGE - PPO) [id number] Vipul W Dnaial [id number] Vipul Danial 06/09/2024 1 [employer] (MEDICARE REPLACEMENT/ ADVANTAGE - PPO) [id number] Vipul W Danial [id number] Vipul Danial 06/30/2024 1 [employer] (MEDICARE REPLACEMENT/ ADVANTAGE - PPO) [id number] Vipul W Danial [id number] Vipul Danial 10/06/2024 1 [employer] (MEDICARE REPLACEMENT/ ADVANTAGE - PPO) [id number] Vipul W Danial [id number] Vipul Barrow 02/04/2025 1 [employer] (MEDICARE REPLACEMENT/ ADVANTAGE - PPO) [id number] Vipul Barrow [id number] Vipul Barrow Notes Date Note Type Note Provider Name and Address Organization Details Recorded Time 4 text/html He is here today for a 4 month follow up HTN- Controlled with med,States that every since the dose has been increased he has been feeling tired, he had episode of confusion last month, has goos memoryMed- metoprolol 100 mg daily Hyperlipidemia- labs 01/25 , Trig were high,Med- atorvastatin 20 mg dailySleep Apnea- Never had a sleep study, Does not use CPAP.States he is a heavy snorer, Has stopped breathing while snoring. Does feel tired and fatigue during the day time but yet he feels good.Does not want sleep study, won't be able to use cpapBasal cell cancer on the scalp, has had multiple skin lesion removed, sees dermTIA- had MRI brain showed small vessel disease, mild carotid stenosis and mild ASCarotid stenosis- bilateral, on asa, dopplers in 01/25Meds- Clopidogrel 75mg dailyHearing loss- need hearing eval, does not want Smoker- smokes pipe and cigars, not willing to quit.Smokes 1 cigar a day and 3-4 pipes Lon De La Vega MD [address] [place] [address], [facility] [address], [place], [address], [place] [facility] [address] 02/25/2024 10:26:45 4 text/html He is here today for swollen hands.Has been going on for a couple weeks. Was so swollen he could not bend his fingers but a little better today.Pt states that they are painful.c/o pain in all the jointsHe is here today with his and son who states that he had another episode last . Son does not think it was a seizure. Has a follow up appt with his neurologist in Oct but son is going to call to see if they need to see him sooner. They are in the process of winging him off the Levetiracetam and starting him on Lamotrigine.Dr. Beaulieu (Neurology) Last seen April 03, had CT brain. HE HAD SEIZURE IN 02/26, WAS IN THE HOSPITAL, SEEING NEUROLOGY, HAS BEEN ON MEDS, UNDER CONTROL. He has no cp or sob Lon De La Vega MD [address], [facility] [address], [place], [address], [facility] [employer] [facility] [address] 06/09/2024 15:27:30 4 text/html He is here today for a 4 month follow upPT IS FASTING HTN- Controlled with med,Med- Metoprolol 100 mg daily Hyperlipidemia- Trig were high little high, labs 02/26Med- Atorvastatin 20 mg dailySleep Apnea- Never had a sleep study, Does not use CPAP.States he is a heavy snorer, Has stopped breathing while snoring. Fatgue is betterDoes not want sleep study, won't be able to use cpapBasal cell cancer on the scalp, has had multiple skin lesion removed, sees dermTIA- had MRI brain showed small vessel disease, mild carotid stenosis and mild Seizure disorder- seeing Dr Beaulieu at [facility], consult reviewed, had nl EEG in 02/26 and nl MRI, on Levetiracetamseizures are under controlCarotid stenosis- bilateral, dopplers in 01/25Meds- Clopidogrel 75mg daily, asaHearing loss- need hearing eval, does not want Smoker- smokes pipe and cigars, not willing to quit.Smokes 1 cigar a day and 3-4 pipes Positive LASHAY, WAS DONE FOR EVALUATION OF JOINT PAIN, pain is getting better, rec t see chief of internal medicine and he still has not decided yet. swelig on the hands is geting better. Lon De La Vega MD [address], [facility] [address], [place], [address], [employer] [facility] [address] 06/30/2024 11:09:14 4 text/html He is here today for a 4 month follow upPT IS FASTING ([employer] ) SWELLIG ON THE LEFT SIDE OF NECK WITH NO PAIN X A WEEK HTN- Controlled with med,Med- Metoprolol 100 mg daily Hyperlipidemia- Trig were high little high, labs 02/26Med- Atorvastatin 20 mg dailySleep Apnea- Never had a sleep study, Does not use CPAP.States he is a heavy snorer, stops breathing while snoring. Calvin is betterDoes not want sleep study, won't be able to use cpapBasal cell cancer on the scalp, has had multiple skin lesion removed, sees Iris- had MRI brain showed small vessel disease, mild carotid stenosis and mild Seizure disorder- seeing Dr Beaulieu at [facility], consult reviewed, had nl EEG in 02/26 and nl MRI, on Levetiracetamseizures are under controlCarotid stenosis- bilateral, dopplers in 01/25Meds- Clopidogrel 75mg daily, asaHearing loss- need hearing eval, does not want Smoker- smokes pipe and cigars, not willing to quit.Smokes 1 cigar a day and 3-4 pipes Positive LASHAY, WAS DONE FOR EVALUATION OF JOINT PAIN, pain is better . swelling on the hands has improved Lon De La Vega MD [address] [facility], [facility] [address], [place], [address], [facility] [address] 10/06/2024 11:53:00 5 text/html He is here today for a 4 month follow upPT IS FASTING ([employer] ) HTN- Controlled with med,Med- Metoprolol 100 mg daily Hyperlipidemia- Trig were high little high, labs DUEMed- Atorvastatin 20 mg dailySleep Apnea- Never had a sleep study, Does not use CPAP.States he is a heavy snorer, stops breathing while snoring. Calvin dias betterDoes not want sleep study, won't be able to use cpapBasal cell cancer on the scalp, has had multiple skin lesion removed, sees dermMONIKA- had MRI brain showed small vessel disease, mild carotid stenosis Seizure disorder- seeing Dr Beaulieu at [facility], consult reviewed, had nl EEG in 02/26 and nl MRI, seizures are under controlMeds- was on Levetiracetam,now Lamotrigine 150 mg qd Carotid stenosis- bilateral, dopplers in 01/25 , orderedMeds- Clopidogrel 75mg daily, asaHearing loss- need hearing eval, does not want Smoker- smokes pipe and cigars, not willing to quit.Smokes 1 cigar a day and 3-4 pipes Positive LASHAY, WAS DONE FOR EVALUATION OF JOINT PAIN, pain is better . swelling on the hands has improved since stopping the levetiracetam Had cyst removed from the Left side of neck 11/2024 Lon De La Vega MD [address] [place] [address], [place], [address], [facility] 02/04/2025 12:18:36
--- OUTSIDE RECORDS SUMMARY | 2025-04-07 13:28 | XMS_ITS | Clinical Summary ---
Author Organization [facility] Address [address] [place] [address] Phone Care Team Providers Care Corporate Webmaster Name Role Phone Lon De La Vega MD Primary Care Provider [phone] Allergies Active Allergy Reactions Criticality Noted Date Comments Atorvastatin Muscle Pain Low 10/07/2024 Medications metoprolol succinate (TOPROL XL) 100 mg Extended Release 24 hour tablet Take 1 tablet every day by oral route. 02/25/2024 Active atorvastatin (LIPITOR) 20 mg tablet Take 20 mg by mouth daily. Active ezetimibe (ZETIA) 10 mg tablet Take 1 Tablet by mouth daily. 03/24/2024 Active clopidogreL (PLAVIX) 75 mg Tablet Take 1 Tablet by mouth daily. Active hydroCHLOROthiaz dannie 25 mg tablet Take 1 Tablet by mouth daily. 09/29/2024 Active lamoTRIgine (LaMICtal) 150 mg tablet Take 1 Tablet (150 mg) by mouth daily. 90 Tablet 2 10/07/2024 Active Active Problems Problem Noted Date Diagnosed Date Hypercholesterolemia 03/24/2024 Malignant neoplasm of skin 06/13/2023 Carotid artery stenosis 02/13/2023 Hearing loss 02/13/2023 Aortic valve regurgitation 01/31/2023 Overview (10/07/2024): mild Basal cell carcinoma of skin 01/16/2023 Bilateral impacted cerumen 01/16/2023 Essential hypertension 01/16/2023 Obesity 01/16/2023 Sleep apnea 01/16/2023 Smoker 01/16/2023 Transient ischemic attack 01/16/2023 Encounters Date Type Department Care Team Description 03/24/2025 External Device Data [facility] ABSTRACTION Provider, Abstract 02/17/2025 External Device Data [facility] ABSTRACTION Provider, Abstract 02/17/2025 External Device Data [facility]CTION Provider, Abstract 01/10/2025 External Device Data [facility]CTION Provider, Abstract 01/09/2025 External Device Data [facility] ABSTRACTION Provider, Abstract from Last 3 Months Social History Tobacco Use Types Packs/Day Years Used Date Smoking Tobacco: Every Day Pipe Cigars Tobacco Cessation:Ready to Q uit: Not Asked; Counseling Given: Not Answered Feeling Safe Answer Date Recorded Are you in a relationship wi th someone who hurts you emotionally and/or physically? No 02/28/2024 Sex and Gender Information Value Date Recorded Sex Assigned at Not on file Legal Sex Male 10:00 AM CDT Gender Identity Not on file Sexual Orientation Not on file Last Filed Vital Signs Vital Sign Reading Time Taken Comments Blood Pressure 116/58 10/07/2024 9:51 AM ELECTRIC POWER SUPERINTENDENT Pulse 62 10/07/2024 9:51 AM ELECTRIC POWER SUPERINTENDENT Temperature 36.8 C (98.2 F) 02/28/2024 10:02 AM CDT Respiratory Rate 17 10/07/2024 9:51 AM ELECTRIC POWER SUPERINTENDENT Oxygen Saturation 94% 10/07/2024 9:51 AM ELECTRIC POWER SUPERINTENDENT Inhaled Oxygen Concentration - - Weight 111.1 kg (245 lb) 10/07/2024 9:51 AM ELECTRIC POWER SUPERINTENDENT Height 185.4 cm (6' 1) 10/07/2024 9:51 AM ELECTRIC POWER SUPERINTENDENT Body Mass Index 32.32 10/07/2024 9:51 AM ELECTRIC POWER SUPERINTENDENT Plan of Treatment Health Maintenance Due Date Last Done Comments DTAP/TDAP/TD VACCINES (1 - Tdap) 1964 PNEUMOCOCCAL VACCINE 50+ YEARS (1 of 2 - PCV) 03/19/19 63 ZOSTER VACCINE (1 of 2) 1994 RSV VACCINE (60+ or ) (1 - 1-dose 75+ series) 2019 INFLUENZA VACCINE (#1) [address] [place] [address] [place] [address] MCR RX [employer] Medicare Part D Care Teams Corporate Webmaster Relationship Specialty Start Date End Date Lon De La Vega MD [address] [address] PCP - General Internal Medicine 02/28/24
== END 2025-04-07 13:13 | disposition home or self-care (01) ==
PROVIDERS: PCP Internal Medicine; Visit Provider Internal Medicine
DX: I65.29 Occlusion and stenosis of unspecified carotid artery (principal)
CPT/HCPCS: 93880